=== PATIENT | female | born 1990 | race Caucasian/White ===

== ENCOUNTER 2020-01-01 20:17 | Emergency (ER) | payer BC ==
[~2020-01-01] VITALS: Ht 165.1 cm; Wt 90.3 kg
[2020-01-01] MEDS ORDERED: DILTIAZEM PO (20:37)
[2020-01-01 21:05] LABS: URINE BILIRUBIN NEGATIVE (Negative); URINE BLOOD NEGATIVE (Negative); URINE CLARITY CLEAR; URINE COLOR STRAW; URINE GLUCOSE-RANDOM NEGATIVE (Negative); URINE KETONES NEGATIVE (Negative); URINE LEUKOCYTES-REFLEX NEGATIVE (Negative); URINE NITRITE-REFLEX NEGATIVE (Negative); URINE PROTEIN NEGATIVE (Negative); URINE SPECIFIC GRAVITY <= 1.005 (1.005-1.030); URINE UROBILINOGEN 0.2 E.U./dl (0.2-1.0)
[2020-01-01 21:22] LABS: ABSOLUTE EOSINOPHILS 0.2 thou/uL (0.0-0.7); ABSOLUTE LYMPHOCYTES 1.9 thou/uL (0.8-5.3); ABSOLUTE MONOCYTES 0.5 thou/uL (0.0-1.2); BASOPHILS 0.4 %; EOSINOPHILS 2.2 %; HEMATOCRIT 38.4 % (37.0-47.0); HEMOGLOBIN 13.2 gm/dL (12.0-15.0); LYMPHOCYTES 21.6 %; MCH 30.5 pg (26.0-34.0); MCHC 34.4 g/dL (28.0-37.0); MCV 88.7 fL (80.0-100.0); MONOCYTES 5.8 %; MPV 9.7 fl. (7.2-11.1); NUCLEATED RBCS 0 /100WBC; PLATELET COUNT* 231 thou/uL (150-400); RBC 4.33 mil/uL (4.20-5.00); RDW-CV 13.3 % (10.5-14.5); WBC 8.6 thou/uL (4.0-11.0)
[2020-01-01 21:30] LABS: CALCIUM 8.3 mg/dL (8.5-10.1); POTASSIUM 3.9 mmol/L (3.5-5.1)
[2020-01-01 21:35] LABS: ALBUMIN 3.8 g/dL (3.4-5.0); TOTAL BILIRUBIN 0.2 mg/dL (<0.1-1.0); TOTAL PROTEIN 7.5 g/dL (6.4-8.2)
[2020-01-01] MEDS ORDERED: PRILOSEC OTC20 MG PO (21:45)
[2020-01-01] MEDS ORDERED: BENTYL 20 MG TA20 M1 PO (21:45)
[2020-01-01] MEDS ORDERED: ONDANSETRON HCL4 M2 PO (21:45)
[2020-01-01 22:29] VITALS: BP 113/79
--- NOTE | 2020-01-02 10:18 | EKG ---
[place] [address] ELECTROCARDIOGRAM REPORT Name: VERN DOUGLAS Room: [facility]#: [id number] Admission: 01/01/20 Attend Phys: Discharge: 01/01/20 Date of : 89 Date of Service: 01/01/202105 Report #: [id number] THIS REPORT FOR: //name// [facility] ED Test Date: 2020-01-01 Test Time: 21:06:20 Pat Name: VERN DOUGLAS Department: Room: Gender: F Bi Manager: GALI : 1990 Requested By: Rebekah Whitfield Order Number: [id number] MD: Marlon Perea Measurements Intervals [place] Rate: 64 P: 35 TN: 141 QRS: 53 QRSD: 92 T: 10 QT: 381 QTc: 393 Interpretive Statements Sinus rhythm No previous ECG available for comparison Electronically Signed On 01-02-2020 10:17:28 CDT by Marlon Perea [email or web address] <ELECTRONICALLY SIGNED> By: Marlon Perea MD, [facility] 01/02/20 1017 [id number] 05 Marlon Perea MD, FACC /EPI
== END 2020-01-01 22:32 | disposition home or self-care (01) ==
LOC: M.ERS 20:17
PROVIDERS: Nurse Practitioner Family
DX: N89.8 Other specified noninflammatory disorders of vagina (principal); R10.2 Pelvic and perineal pain; R12 Heartburn; Z32.02 Encounter for pregnancy test, result negative; Z98.51 Tubal ligation status

== ENCOUNTER 2020-05-24 09:04 | Emergency (ER) | payer BC ==
[~2020-05-24] VITALS: Ht 165.1 cm; Wt 86.2 kg
[~2020-05-24 09:04] MED LIST: BENTYL 20 MG TA20 M1 PO; DILTIAZEM PO; ONDANSETRON HCL4 M2 PO; PRILOSEC OTC20 MG PO
[2020-05-24] MEDS ORDERED: DILTIAZEM ER180 M2 PO (09:14)
[2020-05-24] MEDS ORDERED: NORCO 5-325 TA1 EAC2 PO (10:19)
[2020-05-24] MEDS ORDERED: PREDNISONE 20 M20 M1 PO (10:19)
[2020-05-24 10:25] VITALS: BP 128/76
== END 2020-05-24 10:26 | disposition home or self-care (01) ==
LOC: M.ERS 09:04
DX: M72.2 Plantar fascial fibromatosis (principal); Z98.51 Tubal ligation status